=== PATIENT | male | born 1985 | race Caucasian/White ===

== ENCOUNTER 2017-04-14 19:10 | Inpatient (IN) | payer OTHER ==
[~2017-04-14] VITALS: Ht 182.9 cm; Wt 77.1 kg
--- NOTE | 2017-04-14 21:30 | NUR ---
PRE ADMISSION NOTE : The patient is a 32-year-old male who presents to [facility] for medically supervised withdrawal from Oxycodone , Xanax, ETOH. Pt. is Full Code, on Reg.Diet, NKA. The patient reports starting to use Oxycodone/Xanax tablets in 2012, ETOH in 1997. Longest sober period was 12 months in 2014. He states the cause of her ongoing and frequent use have been due to difficulty coping with chronic pain, stress, controlling impulsivity, cravings, and treatment of negative withdrawal symptoms. He states his substance use has negatively impacted his life by impairing close relationships, losing his job, and negatively impacting his physical and mental health. He states that learning how to manage chronic pain, control impulses, cope with anxiety, and staying adherent to long-term treatment are barriers he will have to overcome to achieve full, long-term sobriety. The patient confirms a history of withdrawal-induced seizures x3, last episode was on 04/11/2017 with hospitalization . Pt. denies history of SI/HI, denies history of audio and video hallucinations .Upon assessment, pt is alert and oriented x4 , the patient reported the following symptoms of withdrawal: anxiety, restlessness, mild generalized pain, felt tremors, difficulty concentrating, anhedonia. Pt is cooperative, speech is clear and audible. Heart rate is regular. Pt denies chest pain or SOB. PERRLA, breathing is even and unlabored. Lung sounds clear in all lobes, abdomen is soft, pt complains of constipation related to opiate use. AP=179/88, HR=90, SpO2=95% with RA, RR=16, Temp=98.1. Last BM on 04/12/17. Pt's skin is warm, dry and intact. Pt. will be admitted to the unit.
[2017-04-14 22:22] LABS: *AMPHETAMINE, URINE POSITIVE (NEGATIVE); *BARBITURATE, URINE NEGATIVE (NEGATIVE); *CANNABINOID, URINE POSITIVE (NEGATIVE); *COCCAINE, URINE NEGATIVE (NEGATIVE); *OPIATE, URINE NEGATIVE (NEGATIVE); *PHENCYCLIDINE SCREEN,URINE NEGATIVE (NEGATIVE)
--- NOTE | 2017-04-14 23:00 | NUR ---
ADMISSION NOTE : The patient is a 32-year-old male who presents to [facility] for medically supervised withdrawal from Oxycodone , Xanax, ETOH He was admitted on 04/14/2017 at 21:57. It is his third Detox. Pt. is Full Code, on Reg.Diet, NKA. Pt. is on FALL and SEIZURES precautions. The patient reports starting to use Oxycodone/Xanax tablets in 2012, ETOH in 1997. Longest sober period was 12 months in 2014. He states the cause of her ongoing and frequent use have been due to difficulty coping with chronic pain, stress, controlling impulsivity, cravings, and treatment of negative withdrawal symptoms. He states his substance use has negatively impacted his life by impairing close relationships, losing his job, and negatively impacting his physical and mental health. He states that learning how to manage chronic pain, control impulses, cope with anxiety, and staying adherent to long-term treatment are barriers he will have to overcome to achieve full, long-term sobriety. The patient confirms a history of withdrawal-induced seizures x3, last episode was on 04/11/2017 with hospitalization , his PCP is , [place], [place]. Pt. denies history of SI/HI, denies history of audio and video hallucinations . He was arrested for DUI and was x1 in the nursing home (2 days) . Upon assessment, pt is alert and oriented x4 , the patient reported the following symptoms of withdrawal: anxiety, restlessness, mild generalized pain, felt tremors, difficulty concentrating, anhedonia. Pt is cooperative, speech is clear and audible. Heart rate is regular. Pt denies chest pain or SOB. PERRLA, breathing is even and unlabored. Lung sounds clear in all lobes, abdomen is soft, pt complains of constipation related to opiate use. YU=668/88, HR=90, SpO2=95% with RA, RR=16, Temp=98.1. Last BM on 04/12/17. Pt's skin is warm, dry and intact. Pt was oriented to room and unit. Pt. was able to provide UDS sample , see results in the PC chart. Safety measures in place : bed on lowest position with side rails x2 up for safety, call light within reach. Will continue to monitor closely and offer help. SUBSTANCE ABUSE HISTORY : -Xanax 10mg QD PO since 2014, last use on 04/14/2017, uses since 2012 -Oxycodone 120mg QD PO since 2013, last use on 04/14/2017, uses since 2012 -ETOH/WINE 750 ml QD PO , since 1997, last use on 04/14/2017 Occasionally Marijuana 1 gm QD smoking x3/week since 1996 Cocaine 1 ball x1/week since 2000 PAST MEDICAL HISTORY : 1.T10-T12 fusion 2. Depression 3. Constipation 4. Anxiety disorder 5. Low back pain , L4-L5 . Past Family History : - Alcohol use disorder, HTN(father) -Hypothyroidism, Obesity (mother) -Depression (sister) PAST Tx HISTORY : X2 Detox. X3 Rehab. Addendum: 04/15/17 at 1243 by JOSE D CARBAJAL RN Patient reports taking 1 pill for ADD that had Amphetamine in it on 04/14/17. Unknown name or dosage.
[2017-04-15] VITALS: BP 130/88
[2017-04-15 01:23] LABS: BASOPHILS % (AUTO) 0.5 % (0.0-2.0); EOSINOPHILS # (AUTO) 0.2 K/uL (0.0-0.7); EOSINOPHILS % (AUTO) 2.9 % (0.0-7.0); HEMATOCRIT 39.1 % (40-50); LYMPHOCYTES # (AUTO) 3.1 K/UL (0.8-4.8); LYMPHOCYTES % (AUTO) 42.3 % (20.5-51.5); MEAN CORPUSCULAR HEMOGLOBIN 28.5 UUG (27.0-31.0); MEAN CORPUSCULAR HGB CONC 33 g/dL (32.0-37.0); MONOCYTES # (AUTO) 0.7 K/UL (0.1-1.30); MONOCYTES % (AUTO) 9.1 % (0.0-11.0); NEUTROPHILS # (AUTO) 3.3 K/UL (1.8-8.9); NEUTROPHILS % (AUTO) 45.2 % (38.5-71.5); PLATELET COUNT (AUTO) 340 K/UL (150-450); RED BLOOD CELL COUNT(AUTO) 4.55 MIL/UL (4.7-6.1); WHITE BLOOD COUNT (AUTO) 7.3 K/UL (4.0-11.2)
[2017-04-15 01:37] LABS: ETHANOL < 3 MG/DL (0-0)
[2017-04-15 02:26] LABS: ALANINE AMINOTRANSFERASE 22 U/L (16-63); ALKALINE PHOSPHATASE 80 U/L (50-136); AMYLASE 34 U/L (25-115); ASPARTATE AMINOTRANSFERASE 17 U/L (15-37); BILIRUBIN,TOTAL 0.5 mg/dL (0.2-1.0); CARBON DIOXIDE 32 mmol/L (21-32); CHLORIDE 104 mmol/L (98-107); CREATININE 0.9 mg/dL (0.6-1.3); GLUCOSE 120 mg/dL (74-106); LIPASE 69 U/L (73-393); MAGNESIUM 1.9 mg/dL (1.8-2.4); POTASSIUM 3.4 mmol/L (3.5-5.1); TOTAL PROTEIN, SERUM 7.3 g/dL (6.4-8.2); UREA NITROGEN, BLOOD 7 mg/dL (7-18)
[2017-04-15 02:34] LABS: THYROID STIMULATING HORMONE 1.616 mIU/mL (0.358-3.740)
[2017-04-15] MEDS ORDERED: BUPR1FIL3 SL (03:35)
[2017-04-15] MEDS ORDERED: TRAZ-147 PO (03:36)
[2017-04-15] MEDS ORDERED: FLUO40CA8 PO (03:37)
[2017-04-15] MEDS ORDERED: NAPR1TAB28 PO (03:40)
[2017-04-15] MEDS ORDERED: BUSP30TA2 PO (03:40)
[2017-04-15] MEDS ORDERED: LIDO30AD10 TD (03:40)
[2017-04-15] MEDS ORDERED: GABA600T2 PO (03:40)
[2017-04-15] MEDS ORDERED: PROP20TA7 PO (03:40)
[2017-04-15 04:00] VITALS: BP 120/80
--- NOTE | 2017-04-15 06:58 | NUR ---
END OF SHIFT The patient is a 32-year-old male who presents to [facility] for medically supervised withdrawal from Oxycodone , Xanax, ETOH. Pt. is Full Code, on Reg.Diet, NKA. The patient reports starting to use Oxycodone/Xanax tablets in 2012, ETOH in 1997. Longest sober period was 12 months in 2014. The patient confirms a history of withdrawal-induced seizures x3, last episode was on 04/11/2017 with hospitalization . Pt. denies history of SI/HI, denies history of audio and video hallucinations . Pt remains compliant with the treatment plan. No PRNs were given during my shift. V/S remain WNL. RR=16, even and unlabored, lungs clear upon auscultation, abdomen soft and non- distended. Pt denies nausea, vomiting and diarrhea. LAST CIWA= 4 , COWS=4 at 0400 , DCOUNQ=438 ml, voided x 1, slept hours. Safety measures in place : bed on lowest position with side rails x2 up for safety, call light within reach. Will continue to monitor closely and offer help.
[2017-04-15 08:00] VITALS: BP 127/78
--- NOTE | 2017-04-15 08:05 | NUR ---
START OF SHIFT NOTE Received pt aox4. Patient resting in bed watching tv. He states he did not sleep last night and is very anxious and restless. No taper ordered yet. No PRNs given per table games shift manager. Patient has seizure history- side rails padded and up x2. CIWA 10 COWS 10 at 0800 this AM. Encouraged pt to increase fluid intake and rest during shift. Encouraged pt to notify RN if S/S of W/D worsen. Will monitor closely and offer help.
--- NOTE | 2017-04-15 09:33 | NUR ---
PRN MEDICATION 10 MG VALIUM GIVEN FOR CIWA 10.WILL REASSESS
--- NOTE | 2017-04-15 09:39 | NUR ---
PRN REASSESSMENT CIWA DECREASED TO 6. PT REPORTS FEELING BETTER AND LESS ANXIOUS. WILL MONITOR.
[2017-04-15 12:00] VITALS: BP 107/72
--- NOTE | 2017-04-15 14:29 | NUR ---
PRN MEDICATION PRN MIRALAX GIVEN FOR CONSTIPATION. PT REPORTS NO BM FOR 4-5 DAYS. WILL REASSESS
--- NOTE | 2017-04-15 15:30 | NUR ---
PRN REASSESSMENT PT REPORTS NO RELIEF. WILL ENDORSE TO PLEAT TAPER TO GIVE HS MEDICATION.
[2017-04-15 16:00] VITALS: BP 116/61
--- NOTE | 2017-04-15 18:34 | NUR ---
END OF SHIFT NOTE Patient started on Subutex/ Valium taper this shift. PRN Valium and Miralax given. Patient reports no relief and no Bm in a few days. Last COWS 10 CIWA 10. Patient denies S/I or H/I. Patient rested in room and did not attend groups or activities. All needs met. Tb test planted to LFA. All safety measures in place. Vital signs stable. Will endorse to night nurse.
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
[2017-04-15 20:00] VITALS: BP 128/95
--- NOTE | 2017-04-15 22:12 | NUR ---
PRN BENADRYL 50 MG 1 CAP PO ADMINISTRATION Patient c/o insomnia. PRN Benadryl 50 mg 1 capsule PO administrated with full glass of water as ordered. Patient tolerated well. All needs met. Safety measures on place. Call light within reach, bed in lowest position and locked, padded rails up bilaterally rails up bilaterally. Will continue to monitor closely.
--- NOTE | 2017-04-15 23:12 | NUR ---
RE-ASSESSMENT Patient is sleeping. Respirations even and unlabored. RR:14. PRN Benadryl 50 mg 1 capsule PO administrated to patient @ 2212 for insomnia was effective. All needs met. Safety measures on place. Call light within reach, bed in lowest position and locked, padded rails up bilaterally rails up bilaterally. Will continue to monitor closely.
[2017-04-16] VITALS: BP 127/80
--- NOTE | 2017-04-16 00:44 | NUR ---
PRN ROBAXIN 750 MG 1 TAB PO Patient c/o myalgia. PRN Robaxin 750 mg 1 tab PO administrated with full glass of water as ordered. Patient tolerated well. All needs met. Safety measures on place. Call light within reach, bed in lowest position and locked, padded rails up bilaterally rails up bilaterally. Will continue to monitor closely.
--- NOTE | 2017-04-16 01:44 | NUR ---
RE-ASSESSMENT Patient is sleeping. Respirations even and unlabored. RR:15. PRN Robaxin 750 mg PO for myalgia was effective. All needs met. Safety measures on place. Call light within reach, bed in lowest position and locked, padded rails up bilaterally rails up bilaterally. Will continue to monitor closely.
[2017-04-16 04:00] VITALS: BP 110/62
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
--- NOTE | 2017-04-16 07:40 | NUR ---
START OF SHIFT NOTE Received pt aox4. Patient reports feeling groggy this morning. Pt on 5 day Valium/5 day Subutex taper. PRN Robaxin given per night nurse. Patient has seizure history- side rails padded and up x2. Last CIWA 6 COWS 4 per night nurse. Encouraged pt to increase fluid intake and rest during shift. Encouraged pt to notify RN if S/S of W/D worsen. Will monitor closely and offer help.
[2017-04-16 08:00] VITALS: BP 118/62
[2017-04-16 10:11] LABS: HEPATITIS B SURFACE AG Negative (Negative)
[2017-04-16 12:00] VITALS: BP 115/69
[2017-04-16 16:00] VITALS: BP 113/79
--- NOTE | 2017-04-16 18:32 | NUR ---
END OF SHIFT NOTE Patient continued on Subutex/ Valium taper this shift and tolerating well. No PRNs given during shift as detox meds are effective. Last COWS 6 CIWA 6. Patient denies S/I or H/I. Patient rested in room and did not attend groups or activities. All needs met. All safety measures in place. Vital signs stable. Will endorse to night nurse.
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
[2017-04-16 20:00] VITALS: BP 120/85
[2017-04-17] VITALS: BP 103/72
--- NOTE | 2017-04-17 00:19 | NUR ---
PRN ROBAXIN 750 MG 1 TAB PO, PRN VISTARIL 25 MG 1 CAP PO, AND DULCOLAX 10 MG 2 TABS.DRS PO ADMINISTRATION Patient c/o myalgia, increase anxiety, and constipation. PRN Robaxin 750 mg 1 tab PO for myalgia, PRN Vistaril 25 mg 1 cap PO for anxiety, and PRN Dulcolax 10 mg 2 tabs.DRS PO for constipation administrated with full glass of water as ordered. Patient tolerated well. All needs met. Safety measures on place. Call light within reach, bed in lowest position and locked, padded rails up bilaterally rails up bilaterally. Will continue to monitor closely.
--- NOTE | 2017-04-17 01:19 | NUR ---
RE-ASSESSMENT Patient is sleeping. Respirations even and unlabored. RR:14. PRN Robaxin 750 mg 1 tab PO for myalgia, PRN Vistaril 25 mg 1 cap PO for anxiety, and PRN Dulcolax 10 mg 2 tabs.DRS PO for constipation were effective. All needs met. Safety measures on place. Call light within reach, bed in lowest position and locked, padded rails up bilaterally rails up bilaterally. Will continue to monitor closely.
[2017-04-17 04:00] VITALS: BP 119/66
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
--- NOTE | 2017-04-17 07:54 | NUR ---
START OF SHIFT NOTE Received report from night nurse, 32 year old male admitted for Benzo/ETOH/Amphetamine/Marijuana dependence. Pt cont with 5 day Valium/Subutex taper. Per endorsement pt received PRN Robaxin effective his last CIWA-4, COWS-7. Pt slept for 6 hours. Pt received awake, alert and oriented x4, educated regarding plan of care for the day and medication regimen. Safety measures in place. call light kept with in reach. fall and seizure precautions observed and in place, will continue to monitor.
[2017-04-17 08:00] VITALS: BP 126/74
[2017-04-17 12:00] VITALS: BP 118/84
[2017-04-17 16:00] VITALS: BP 133/92
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
--- NOTE | 2017-04-17 19:03 | NUR ---
END OF SHIFT NOTE Pt presented with general body aches. Pt was given PRN Toradol IM effective. Pt cont with Valium/Subutex taper tolerating well. Pt remained compliant with treatment. Pt attended some groups and activities. Vital signs WNL. Encouraged po fluids as tolerated. Most recent CIWA-5, COWS-6. Safety measures in place. Pt endorsed to night nurse in stable condition.
[2017-04-17 20:00] VITALS: BP 106/72
[2017-04-18] VITALS: BP 96/53
[2017-04-18 04:00] VITALS: BP 103/72
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
--- NOTE | 2017-04-18 07:39 | NUR ---
BEGINNING OF SHIFT Patient endorsement report received from flat clothier nurse, all pertinent information discussed. patient is a 32 year old male with admitting Dx: Opiate/BZO/etoh dependence, and substance use of: marijuana and cocaine. Patient admitted on 04/14/2017, patient with past medical history: seizure, depression, anxiety and constipation. patient currently under close observation ongoing, 5 day Ativan taper and 5 day Subutex taper as ordered. Scheduled to begin day: 4 of taper. Per flat clothier patient received no PRN medications. patient slept for 10 hours, with last ciwa score of: 3 and last cow score of: 4. Patient received awake, alert and oriented x4, educated regarding plan of care for the day and medication regimen. Safety measures in place. call light kept with in reach. fall and seizure precautions observed and in place, will continue to monitor closely. safety measures in place.
[2017-04-18 08:28] VITALS: BP 110/71
[2017-04-18 13:39] VITALS: BP 94/61
[2017-04-18 17:24] VITALS: BP 100/66
--- NOTE | 2017-04-18 18:51 | NUR ---
END OF SHIFT Patient alert and oriented x4, vital signs were stable during shift. Patient compliant with therapeutic plan of care. Patient with admitting Dx: opiate/bzo/etoh dependence. Patient continues on 5 day subtext taper and 5 day Valium taper as ordered, and is currently on day 3 of taper, well tolerated no ASE noted. Encouraged adequate PO fluid intake as tolerated.0900 assessment patient presented with: c/o chills, mild bone and joint aches, yawning, mild anxiety with cow score of: 4 and ciwa score of: 2; 1300 assessment patient presented with: mild bone and joint aches, c/o chills, barely sweating and mild anxiety with cow score of: 3 and ciwa score of:2; 1700 assessment patient presented with: c/o chills, mild bone and joint aches, mild anxiety and barely sweating with cow score of: 3 and ciwa score of: 2. Patient denies any SI/HI. Encouraged to attend group therapies/sessions to learn new coping skills to prevent relapse. Received no PRNs during shift. Clonidine was held during shift for decreased blood pressure. Patients safety measures in place. Call light kept with in each. Will continue to monitor closely. Patient endorsed to furniture crater nurse, all pertinent information discussed.
[2017-04-18 20:00] VITALS: BP 115/70
--- NOTE | 2017-04-18 20:00 | NUR ---
START OF SHIFT Pt is a 32 y/o male admitted on 04/14/17 for ETOH, benzos, and opiate dependence. Pt was dependent on Xanax, Oxycodone, wine, MJ, and cocaine. Pt is full code, regular diet, NKA, fall and seizure precautions. Pt reports PMH of anxiety, depression, seizure (last on 04/11/17 r/t withdrawal) and hx of L4-L5 disc dislocation (2005) and T10-T12 spinal fusion (2013). Pt started a 5 day Valium and 5 day Subutex starting on 04/15/17, tolerating well. No PRNS given during day shift. Upon assessment, pt complained of lower back pain 5/10 on pain scale and appeared mildly anxious. Respirations 16, even and unlabored. Denies N/V/D. Denies chest pain or SOB. Medications due. Safety measures in place. Call light within reach. Will continue to monitor.
[2017-04-19] VITALS: BP 117/64
--- NOTE | 2017-04-19 | NUR ---
COW/CIWA deferred COWS and CIWA deferred for 0000. Will reassess as pt awake per MD order. Respirations 16, even and unlabored. Safety measures in place. Call light within reach.
[2017-04-19 04:00] VITALS: BP 98/46
--- NOTE | 2017-04-19 04:00 | NUR ---
VITAL SIGNS BP:98/42, P:62, R:14, T: 97.8, 02: 96%, PA: 0. COWS and CIWA deferred d/t pt sleeping, to assess while pt is awake as ordered by MD. Pt is laying in bed with eyes closed. Respirations 14, even and unlabored. Safety measures in place. Call light within reach. Will continue to monitor.
--- NOTE | 2017-04-19 07:00 | NUR ---
END OF SHIFT Pt is a 32 y/o male admitted on 04/14/17 for ETOH, benzos, and opiate dependence. Pt was dependent on Xanax 10 mg daily, Oxycodone 120 mg daily, wine 750 mL daily, MJ 1 g x3/week, and cocaine 1 ball x 1/week. Pt is full code, regular diet, NKA, and on fall and seizure precautions. Pt reports PMH of anxiety, depression, seizure (last on 04/11/17 r/t withdrawal) and hx of L4-L5 disc dislocation (2005) and T10-T12 spinal fusion (2013). Pt started a 5 day Valium and 5 day Subutex on 04/15/17, tolerating well. During shift, pt complained of lower back pain 5/10 on pain scale and appeared mildly anxious. Scheduled taper medications administered, effective in management of s/s of withdrawal as verbalized by pt. Last COW 2 and CIWA 3. Pt slept 6 hours. Intake 1000, void x2. Last vitals _No PRNS given. Safety measures in place. Call light within reach. Pt needs have been met. Endorsed to day shift nurse.
--- NOTE | 2017-04-19 07:02 | NUR ---
Start of Shift Notes: Received patient in his room. Alert and oriented x 4. Verbally responsive. Appears anxious with mild sweats and noted with tremors. Respirations even and unlabored. No SOB noted. Skin warm and dry to touch. Abdomen soft and non-distended with (+) BS in all 4 quadrants. No complains of N/V/D or constipation noted. No complains of abdominal discomfort noted. Bladder non-distended. Voids independently. Ambulatory ad fernando with steady gait. Patient is a 32 year old male admitted for opiate/BZO and ETOH dependence who was placed on a 5-day Valium and 5-day Subutex taper as ordered. No adverse reactions noted. Has past medical hx of seizures due to withdrawal, L4-L5 disc disolocation, T10-T12 fusion, depression, anxiety and constipation. FULL CODE. Regular diet. Educated patient on his current plan of care and his medication regimen. Encouraged oral fluid intake and encouraged group participation to learn new skills to prevent relapse. Will continue to monitor.
[2017-04-19 08:00] VITALS: BP 111/73
--- NOTE | 2017-04-19 11:00 | NUR ---
ENDORSEMENT Pt endorsed to me. All information given. No distress noted.
[2017-04-19 13:16] VITALS: BP 118/66
[2017-04-19 17:28] VITALS: BP 96/53
--- NOTE | 2017-04-19 18:09 | NUR ---
END OF SHIFT Pt 32 y/o male admitted for opiate/ benzo/ etoh dependence. Pt alert and oriented to name, place, and time. [place]. Skin warm and slightly moist to touch. Respirations even and unlabored. Pt observed mostly isolative to room today. Pt was seen by MD. Pt medication compliant and tolerated well. No ASE noted. Bed on lowest position with side rails x2 up for safety. Call light within reach. No distress noted at this time.
--- NOTE | 2017-04-19 19:30 | NUR ---
START OF SHIFT Pt is a 32 y/o male admitted on 04/14/17 for ETOH, benzos, and opiate dependence. Pt was dependent on Xanax, Oxycodone, wine, MJ, and cocaine. Pt is full code, regular diet, NKA, fall and seizure precautions. Pt reports PMH of anxiety, depression, seizure (last on 04/11/17 r/t withdrawal) and hx of L4-L5 disc dislocation (2005) and T10-T12 spinal fusion (2013). Pt started a 5 day Valium and 5 day Subutex starting on 04/15/17, tolerating well. No PRNS given during day shift. Upon assessment, pt complained of lower back pain 5/10 on pain scale, moderate anxiety and appeared mildly flushed and sweaty. Pt reports that he went to meetings throughout the day. Respirations 16, even and unlabored. Denies N/V/D. Denies chest pain or SOB. Medications due. Safety measures in place. Call light within reach. Will continue to monitor.
[2017-04-19 20:00] VITALS: BP 108/65
--- NOTE | 2017-04-19 21:00 | NUR ---
CLONIDINE HELD Held clonidine d/t BP 108/65 per order to hold if BP lower than 100/70. Pt received all other scheduled medications. Respirations 16, even and unlabored. Safety measures in place. Call light within reach.
--- NOTE | 2017-04-19 22:32 | NUR ---
PRN BENADRYL PRN Benadryl given for sleep aid per client request. Respirations 16, even and unlabored. Safety measures in place. Call light within reach. Will continue to monitor.
--- NOTE | 2017-04-19 23:32 | NUR ---
PRN BENADRYL REASSESSMENT Pt is laying in bed with eyes closed. Respirations are 16, even and unlabored. Safety measures in place. Call light within reach. Will continue to monitor.
[2017-04-20] VITALS: BP 104/50
--- NOTE | 2017-04-20 | NUR ---
VITAL SIGNS BP 104/50, P 60, R16, 02 95% T 98.0 PA 0/10 Pt is laying in bed with eyes closed. COWS/CIWA deferred, to be assessed when pt is awake per MD order. Respirations 16, even and unlabored. Safety measures in place. Call light within reach.
[2017-04-20 04:00] VITALS: BP 103/46
--- NOTE | 2017-04-20 04:00 | NUR ---
VITAL SIGNS BP 103/46 P 60 R18 02 97% T 98.2 PA 02/11 Pt is laying in bed with eyes closed. COWS/CIWA deferred, to be reassessed when awake per MD order. Respirations 18, even and unlabored. Safety measures in place. Call light within reach.
--- NOTE | 2017-04-20 07:12 | NUR ---
END OF SHIFT Pt is a 32 y/o male admitted on 04/14/17 for ETOH, benzos, and opiate dependence. Pt was dependent on Xanax, Oxycodone, wine, MJ, and cocaine. Pt is full code, regular diet, NKA, fall and seizure precautions. Pt reports PMH of anxiety, depression, seizure (last on 04/11/17 r/t withdrawal) and hx of L4-L5 disc dislocation (2005) and T10-T12 spinal fusion (2013). Pt started a 5 day Valium and 5 day Subutex starting on 04/15/17, tolerating well. Pt complained of lower back pain 5/10 on pain scale, moderate anxiety and appeared mildly flushed and sweaty. Administered scheduled medication and PRN Benadryl, effective in management of s/s of withdrawal as verbalized by pt. Last COW 3, CIWA 3. Pt slept 5 hours. Intake of 1750 ml, void x 3, stool x 0. Safety measures in place. Call light within reach. Pt needs have been met. Endorsed to day shift nurse.
[2017-04-20 08:00] VITALS: BP 105/61
[2017-04-20 12:00] VITALS: BP 118/70
[2017-04-20] MEDS ORDERED: BACL20TA PO (14:21)
[2017-04-20] MEDS ORDERED: DICY20TA28 PO (14:21)
[2017-04-20] MEDS ORDERED: NICO1PAT25 TD (14:21)
[2017-04-20] MEDS ORDERED: HYDR-3895 PO (14:21)
[2017-04-20] MEDS ORDERED: IBUP-1953 PO (14:21)
[2017-04-20] MEDS ORDERED: GABA-534 PO (14:21)
[2017-04-20] MEDS ORDERED: CLON0.1T14 PO (14:21)
[2017-04-20] MEDS ORDERED: DIPH50CA37 PO (14:21)
[2017-04-20 16:00] VITALS: BP 95/49
--- NOTE | 2017-04-20 18:50 | NUR ---
End of Shift Notes: Patient completed his 5-day Ativan and 5-day Subutex taper as ordered. No adverse reactions noted. Ptaient tolerated taper well. VS monitored closely. No significant abnormalities noted. Withdrawal symptoms were closely monitored. Initial COWS 2/CIWA 3. Patient noted with mild anxiety, sweats, and fatigue. Last COWS 2/CIWA 2. Per patient, Ativan and Subutex has been helping him reduce his withdrawal symptoms. Patient requires encouragement to attend group and participate in activities. Appears withdrawn with flat affect and tends to isolate self from his peers at times. No PRNs given during the shift. Fall and seizure precautions in place. All needs met and attended. Call light kept in reach. Will continue to monitor closely.
[2017-04-20 20:00] VITALS: BP 110/77
--- NOTE | 2017-04-20 20:00 | NUR ---
START OF SHIFT Pt is a 32 y/o male admitted on 04/14/17 for ETOH, benzos, and opiate dependence. Pt is her for Xanax 10 mg daily, Oxycodone 120 mg daily, wine 750 mL daily, MJ 1 gm x 3 weekly, cocaine 1 ball x 1 weekly. Pt is a full code, regular diet, NKA, fall and seizure precautions. Pt reports PMH of anxiety, depression, seizure (last on 04/11/17) r/t withdrawal) and hx of L4-L5 disc disclocation (2005) and T10-T12 spinal fusion (2013). Pt started a 5 day Valium and 5 day Subutex starting 04/15/17. Pt completed taper. No PRNS given during day shift. Upon assessment, pt reports mild anxiety, mild sweats, and pain 5/10 in back. Respirations 16, even and unlabored. Denies N/V/D. Denies chest pain or SOB. Medications due. Pt is scheduled for discharge tomorrow. Safety measures in place. Call light within reach. Will continue to monitor.
--- NOTE | 2017-04-20 21:28 | NUR ---
PRN BENADRYL PRN Benadryl given for sleep aid per client request. Safety measures in place. Call light within reach. Will continue to monitor.
--- NOTE | 2017-04-20 22:28 | NUR ---
PRN BENADRYL REASSESSMENT Upon reassessment, pt is laying in bed with eyes closed. Respirations 16, even and unlabored. safety measures in place. Will continue to monitor.
[2017-04-21] VITALS: BP 98/50
--- NOTE | 2017-04-21 | NUR ---
VITAL SIGNS BP 98/50, P 67, R 16, 02 98%, T 98.1, PA 0/10 COWS/CIWA deferred. Pt is laying in bed with eyes closed, to be reassessed when pt is awake per MD order. Respirations are even and unlabored. Safety measures in place. Call light within reach. Will continue to monitor.
[2017-04-21 04:00] VITALS: BP 110/73
--- NOTE | 2017-04-21 04:00 | NUR ---
VITAL SIGNS BP 110/73, P 66, R 18, 02 98%, T 98.0, PA 0/10 COWS/CIWA deferred. Pt is laying in bed with eyes closed, to be reassessed when pt is awake per MD order. Respirations are even and unlabored. Safety measures in place. Call light within reach. Will continue to monitor.
--- NOTE | 2017-04-21 07:00 | NUR ---
END OF SHIFT Pt is a 32 y/o male admitted on 04/14/17 for ETOH, benzos, and opiate dependence. Pt is her for Xanax 10 mg daily, Oxycodone 120 mg daily, wine 750 mL daily, MJ 1 gm x 3 weekly, cocaine 1 ball x 1 weekly. Pt is a full code, regular diet, NKA, fall and seizure precautions. Pt reports PMH of anxiety, depression, seizure (last on 04/11/17) r/t withdrawal) and hx of L4-L5 disc disclocation (2005) and T10-T12 spinal fusion (2013). Pt started a 5 day Valium and 5 day Subutex starting 04/15/17. Pt completed taper. During shift pt complained of mild anxiety, mild sweats, and pain 5/10 in back. Scheduled mediations and PRN Benadryl administered, effective in management of s/s of withdrawal AEB COWS 3 and CIWA 2. Pt is scheduled for discharge today. Pt slept 7 hours. Intake 1105 ml, void x 1, stool x 1. Safety measures in place. Call light within reach. Endorsed to day shift nurse.
--- NOTE | 2017-04-21 07:01 | NUR ---
Start of Shift Notes: Received patient in his room. Alert and oriented x 4. Verbally responsive. Appears anxious with mild sweats and noted with tremors. Respirations even and unlabored. No SOB noted. Skin warm and dry to touch. Abdomen soft and non-distended with (+) BS in all 4 quadrants. No complains of N/V/D or constipation noted. No complains of abdominal discomfort noted. Bladder non-distended. Voids independently. Ambulatory ad fernando with steady gait. Patient is a 32 year old male admitted for opiate/BZO and ETOH dependence who was placed on a 5-day Valium and 5-day Subutex taper as ordered. No adverse reactions noted. Has past medical hx of seizures due to withdrawal, L4-L5 disc disolocation, T10-T12 fusion, depression, anxiety and constipation. FULL CODE. Regular diet. Educated patient on the discharge process. Patient verbalized good understanding. Will continue to monitor.
[2017-04-21 08:00] VITALS: BP 104/71
[2017-04-21 08:23] VITALS: BP 106/71
--- NOTE | 2017-04-21 09:23 | NUR ---
Discharged: Patient education provided regarding his discharge instructions. Verbalized good understanding of all teachings. All clothings, medications, valuables were returned to the patient. VS stable. COWS 0/CIWA 0. Patient was escorted off the unit at this time and was picked up by [facility] [employer] [facility].
== END 2017-04-21 09:23 | disposition home or self-care (01) | DRG 895 ==
LOC: SRC 21:13
PROVIDERS: ADMIT Internal Medicine; ATTEND Internal Medicine
PROC: HZ2ZZZZ Detoxification Services for Substance Abuse Treatment (ICD-10-PCS; principal; 2017-04-14)
PROC: HZ31ZZZ Individual Counseling for Substance Abuse Treatment, Behavioral (ICD-10-PCS; 2017-04-16)
PROC: HZ41ZZZ Group Counseling for Substance Abuse Treatment, Behavioral (ICD-10-PCS; 2017-04-17)
DX: F11.23 Opioid dependence with withdrawal (principal); F33.2 Major depressive disorder, recurrent severe without psychotic features; F13.230 Sedative, hypnotic or anxiolytic dependence with withdrawal, uncomplicated; F10.10 Alcohol abuse, uncomplicated; Y90.9 Presence of alcohol in blood, level not specified; F41.9 Anxiety disorder, unspecified; Z59.0 Homelessness; Z82.0 Family history of epilepsy and other diseases of the nervous system; Z81.1 Family history of alcohol abuse and dependence; Z81.3 Family history of other psychoactive substance abuse and dependence; F17.290 Nicotine dependence, other tobacco product, uncomplicated; Z91.89 Other specified personal risk factors, not elsewhere classified; G89.29 Other chronic pain; M54.5 Low back pain; G47.50 Parasomnia, unspecified; D64.9 Anemia, unspecified; E87.6 Hypokalemia; Z98.1 Arthrodesis status; Z81.8 Family history of other mental and behavioral disorders; Z79.899 Other long term (current) drug therapy
CPT/HCPCS: 36415; 70030-TC; 80307; 80324; 80346; 80349; 83690; 83735; 84443; 85025; 86592; 86705; 86803; 87340; 87806; G0480; J3411; Q0163

== ENCOUNTER 2017-05-05 21:53 | Inpatient (IN) | payer OTHER ==
[~2017-05-05] VITALS: Ht 182.9 cm; Wt 79.8 kg
[~2017-05-05 21:53] MED LIST: BACL20TA PO; BUSP30TA2 PO; CLON0.1T14 PO; DICY20TA28 PO; DIPH50CA37 PO; FLUO40CA8 PO; GABA-534 PO; GABA600T2 PO; HYDR-3895 PO; IBUP-1953 PO; LIDO30AD10 TD; NAPR1TAB28 PO; NICO1PAT25 TD
[2017-05-05 23:05] VITALS: BP 119/68
[2017-05-06] VITALS: BP 109/67
[2017-05-06] MEDS ORDERED: PROP20TA7 PO (03:21)
[2017-05-06] MEDS ORDERED: TRAZ-147 PO (03:21)
[2017-05-06] MEDS ORDERED: PROP10DR10 OP (03:23)
[2017-05-06 04:00] VITALS: BP 98/54
[2017-05-06 06:59] LABS: BASOPHILS % (AUTO) 0.7 % (0.0-2.0); EOSINOPHILS # (AUTO) 0.5 K/uL (0.0-0.7); EOSINOPHILS % (AUTO) 7.6 % (0.0-7.0); HEMATOCRIT 37.7 % (40-50); HEMOGLOBIN 12.5 G/DL (14.0-18.0); LYMPHOCYTES # (AUTO) 2.7 K/UL (0.8-4.8); LYMPHOCYTES % (AUTO) 41.5 % (20.5-51.5); MEAN CORPUSCULAR HEMOGLOBIN 29.1 UUG (27.0-31.0); MEAN CORPUSCULAR HGB CONC 33 g/dL (32.0-37.0); MEAN CORPUSCULAR VOLUME 87.7 FL (82.0-92.0); MONOCYTES # (AUTO) 0.7 K/UL (0.1-1.30); MONOCYTES % (AUTO) 10.5 % (0.0-11.0); NEUTROPHILS # (AUTO) 2.5 K/UL (1.8-8.9); NEUTROPHILS % (AUTO) 39.7 % (38.5-71.5); PLATELET COUNT (AUTO) 268 K/UL (150-450); WHITE BLOOD COUNT (AUTO) 6.4 K/UL (4.0-11.2)
[2017-05-06 07:38] LABS: ALANINE AMINOTRANSFERASE 20 U/L (16-63); ALKALINE PHOSPHATASE 80 U/L (50-136); ASPARTATE AMINOTRANSFERASE 27 U/L (15-37); BILIRUBIN,TOTAL 0.2 mg/dL (0.2-1.0); CARBON DIOXIDE 31 mmol/L (21-32); CHLORIDE 105 mmol/L (98-107); CREATININE 1.1 mg/dL (0.6-1.3); ETHANOL < 3 MG/DL (0-0); GLUCOSE 91 mg/dL (74-106); MAGNESIUM 2.2 mg/dL (1.8-2.4); POTASSIUM 4.1 mmol/L (3.5-5.1); TOTAL PROTEIN, SERUM 6.5 g/dL (6.4-8.2); UREA NITROGEN, BLOOD 13 mg/dL (7-18)
[2017-05-06 08:00] VITALS: BP 107/47
[2017-05-06 09:31] LABS: *AMPHETAMINE, URINE NEGATIVE (NEGATIVE); *BARBITURATE, URINE NEGATIVE (NEGATIVE); *CANNABINOID, URINE NEGATIVE (NEGATIVE); *COCCAINE, URINE NEGATIVE (NEGATIVE); *OPIATE, URINE NEGATIVE (NEGATIVE); *PHENCYCLIDINE SCREEN,URINE NEGATIVE (NEGATIVE)
[2017-05-06 12:00] VITALS: BP 116/66
[2017-05-06 17:10] VITALS: BP 105/60
[2017-05-06 20:00] VITALS: BP 115/67
[2017-05-07] VITALS: BP 99/51
[2017-05-07 04:00] VITALS: BP 97/57
[2017-05-07 06:05] LABS: HEPATITIS B SURFACE AG Negative (Negative)
[2017-05-07 08:00] VITALS: BP 102/52
[2017-05-07 12:00] VITALS: BP 106/61
[2017-05-07 16:00] VITALS: BP 107/60
[2017-05-07 20:00] VITALS: BP 110/70
[2017-05-08] VITALS: BP 103/58
[2017-05-08 04:00] VITALS: BP 105/62
[2017-05-08 08:00] VITALS: BP 107/61
[2017-05-08 12:00] VITALS: BP 118/76
[2017-05-08 17:18] VITALS: BP 114/73
[2017-05-08 20:00] VITALS: BP 126/87
[2017-05-09] VITALS (7 sets, daily range): BP systolic 100–134; BP diastolic 60–84
[2017-05-09] MEDS ORDERED: FLUO-120 PO (17:29)
[2017-05-09] MEDS ORDERED: IBUP-1955 PO (17:29)
[2017-05-09] MEDS ORDERED: TRAZ-147 PO (17:29)
[2017-05-09] MEDS ORDERED: DICY20TA28 PO (17:29)
[2017-05-09] MEDS ORDERED: METH-406 PO (17:29)
[2017-05-09] MEDS ORDERED: BUSP10TA3 PO (17:29)
[2017-05-09] MEDS ORDERED: GABA-534 PO (17:29)
== END 2017-05-10 09:31 | disposition home or self-care (01) | DRG 895 ==
LOC: SRC 22:18
PROVIDERS: ADMIT Internal Medicine; ATTEND Internal Medicine
PROC: HZ2ZZZZ Detoxification Services for Substance Abuse Treatment (ICD-10-PCS; principal; 2017-05-05)
PROC: HZ51ZZZ Individual Psychotherapy for Substance Abuse Treatment, Behavioral (ICD-10-PCS; 2017-05-07)
DX: F13.232 Sedative, hypnotic or anxiolytic dependence with withdrawal with perceptual disturbance (principal); F33.1 Major depressive disorder, recurrent, moderate; F11.23 Opioid dependence with withdrawal; F10.10 Alcohol abuse, uncomplicated; D64.9 Anemia, unspecified; Y90.0 Blood alcohol level of less than 20 mg/100 ml; G47.50 Parasomnia, unspecified; Z59.0 Homelessness; Z91.89 Other specified personal risk factors, not elsewhere classified; Z81.1 Family history of alcohol abuse and dependence; Z81.3 Family history of other psychoactive substance abuse and dependence; Z81.8 Family history of other mental and behavioral disorders; Z82.0 Family history of epilepsy and other diseases of the nervous system; F41.9 Anxiety disorder, unspecified; G89.29 Other chronic pain; F17.200 Nicotine dependence, unspecified, uncomplicated; Z79.899 Other long term (current) drug therapy; Z98.1 Arthrodesis status; Z59.1 Inadequate housing; M54.5 Low back pain
CPT/HCPCS: 36415; 80307; 80346; 83735; 85025; 86592; 86705; 86803; 87340; 87806; 90686; G0480; Q0162